=== PATIENT | male | born 1980 | race Hispanic/Latino ===

== ENCOUNTER 2021-06-01 09:09 | Emergency (ER) | payer SELFPAY ==
--- NOTE | 2021-06-01 11:06 | RAD REPORT ---
EXAM DESCRIPTION: RAD - Ankle Left 3 View - 06/01/2021 10:56 am CLINICAL HISTORY: pain/ inflammation COMPARISON: No comparisons FINDINGS: No left ankle fractures identified. Calcaneal spurring is present. Alignment is normal. IMPRESSION: No acute osseus abnormality involving the left ankle.
--- NOTE | 2021-06-01 12:32 | ER ---
Nurse's Notes [facility] Name: Flavio Stone III Age: 40 yrs Sex: Male : 1980 Arrival Date: 06/01/2021 Time: 09:16 Bed DIS8 Private MD: Diagnosis: Sprain of unspecified ligament of left ankle Presentation: 06/01 10:08 Chief complaint: Patient states: "I think I have a grade II sprain. My Achilles heel is ss swollen and I can't put down my foot.". Coronavirus screen: Client denies travel out of the [place] in the last 14 days. Ebola Screen: Patient denies exposure to infectious person. Patient denies travel to an Ebola-affected area in the 21 days before illness onset. Initial Sepsis Screen: Does the patient meet any 2 criteria? No. Patient's initial sepsis screen is negative. Does the patient have a suspected source of infection? No. Patient's initial sepsis screen is negative. Risk Assessment: Do you want to hurt yourself or someone else? Patient reports no desire to harm self or others. Onset of symptoms was May 28, 2021. 10:08 Method Of Arrival: Ambulatory ss 10:08 Acuity: SYED 4 ss Historical: - Allergies: 10:10 No Known Allergies; ss - Home Meds: 10:10 None [Active]; ss - PMHx: 10:10 None; ss - PSHx: 10:10 None; ss - Immunization history:: Client reports having NOT received the Covid vaccine. - Social history:: Smoking status: Patient denies any tobacco usage or history of. Screenin:30 Abuse screen: Denies threats or abuse. Denies injuries from another. Nutritional hb screening: No deficits noted. Tuberculosis screening: No symptoms or risk factors identified. Fall Risk None identified. Assessment: 12:30 General: Appears in no apparent distress. Behavior is calm, cooperative. Pain: Pain hb currently is 6 out of 10 on a pain scale. Neuro: Level of Consciousness is awake, alert, obeys commands, Oriented to person, place, time, situation. Cardiovascular: Patient's skin is warm and dry. Respiratory: Respiratory effort is even, unlabored, Respiratory pattern is regular, symmetrical. Musculoskeletal: Reports left ankle pain. 13:36 Reassessment: splint checked by ILANA Perry. hb Vital Signs: 10:08 Pulse 89; Resp 16; Temp 97.3; Pulse Ox 98% on R/A; Weight 105.69 kg; Height 5 ft. 9 in. ss (175.26 cm); Pain 6/10; 10:10 BP 146 / 107; ss 10:08 Body Mass Index 34.41 (105.69 kg, 175.26 cm) ED Course: 09:16 Patient arrived in ED. mr 10:10 Triage completed. ss 10:10 Arm band placed on right wrist. ss 10:55 XRAY Ankle LEFT 3 view In Process Unspecified. EDMS 12:21 Orlando Marsh NP is PHCP. pm1 12:21 Lucy Falk is Attending Physician. pm1 12:30 Brittni Bowers, RN is Primary Nurse. hb 12:30 Patient has correct armband on for positive identification. hb Administered Medications: 12:35 Drug: Peck (HYDROcodone-acetaminophen) (7.5 mg-325 mg) 1 tabs Route: PO; hb 13:36 Follow up: Response: No adverse reaction hb Outcome: 12:31 Discharge ordered by MD. pm1 14:20 Patient left the ED. hb Signatures: Dispatcher [employer] [facility] SandhuJany mr QuinonesPerla chavarria RN RN Orlando Marsh NP ASSISTANT OPERATOR pm1 Brittni Bowers, KENTRELL RN hb
--- NOTE | 2021-06-01 12:32 | EDPHYS ---
Physician Documentation [facility] Name: Flavio Stone III Age: 40 yrs Sex: Male : 1980 Arrival Date: 06/01/2021 Time: 09:16 Bed DIS8 Private MD: ED Physician Lucy Falk HPI: 06/01 12:30 This 40 yrs old Male presents to ER via Ambulatory with complaints of Ankle pm1 pain. 12:30 The patient presents with pain, that is acute. The complaints affect the left lateral pm1 ankle and left Achilles. Context: The problem was sustained at home, resulted from Walking on the lateral aspect of his left foot/ball due to pain on the medial aspect of his foot. Onset: The symptoms/episode began/occurred 2 day(s) ago. Modifying factors: The symptoms are alleviated by elevating leg, the symptoms are aggravated by weight bearing. Associated signs and symptoms: Pertinent negatives numbness, swelling, tingling. Treatment prior to arrival includes: no previous treatment. Severity of symptoms: in the emergency department the symptoms are actually worse. The patient has not experienced similar symptoms in the past. The patient has not recently seen a physician. Historical: - Allergies: 10:10 No Known Allergies; ss - Home Meds: 10:10 None [Active]; ss - PMHx: 10:10 None; ss - PSHx: 10:10 None; ss - Immunization history:: Client reports having NOT received the Covid vaccine. - Social history:: Smoking status: Patient denies any tobacco usage or history of. ROS: 12:30 Constitutional: Negative for fever, chills, and weight loss, Cardiovascular: Negative pm1 for chest pain, palpitations, and edema, Respiratory: Negative for shortness of breath, cough, wheezing, and pleuritic chest pain. 12:30 Skin: Negative for injury, rash, and discoloration, Neuro: Negative for headache, weakness, numbness, tingling, and seizure. 12:30 MS/extremity: Positive for pain, of the Left ankle and left foot, Negative for decreased range of motion, deformity. 12:30 All other systems are negative. Exam: 12:30 Constitutional: This is a well developed, well nourished patient who is awake, alert, pm1 and in no acute distress. Head/Face: Normocephalic, atraumatic. 12:30 Skin: Warm, dry with normal turgor. Normal color with no rashes, no lesions, and no evidence of cellulitis. 12:30 Cardiovascular: Exam negative for acute changes, Rate: normal, Rhythm: regular, Pulses: no pulse deficits are appreciated. 12:30 Respiratory: Exam negative for acute changes, respiratory distress, shortness of breath. 12:30 Musculoskeletal/extremity: Extremities: grossly normal except: noted in the left Achilles and left lateral ankle: tenderness, There is no evidence of deformity, Full range of motion, active, intact to left ankle and foot. 12:30 Neuro: Exam negative for acute changes, Orientation: is normal, Mentation: is normal, Sensation: is normal, no obvious gross deficits. Vital Signs: 10:08 Pulse 89; Resp 16; Temp 97.3; Pulse Ox 98% on R/A; Weight 105.69 kg; Height 5 ft. 9 in. ss (175.26 cm); Pain 6/10; 10:10 BP 146 / 107; ss 10:08 Body Mass Index 34.41 (105.69 kg, 175.26 cm) ss MDM: 12:21 Patient medically screened. pm1 12:31 Data reviewed: vital signs. Data interpreted: Pulse oximetry: on room air is 98 %. pm1 Interpretation: normal. Counseling: I had a detailed discussion with the patient and/or guardian regarding: the historical points, exam findings, and any diagnostic results supporting the discharge/admit diagnosis, radiology results, the need for outpatient follow up, for definitive care, a orthopedic surgeon, to return to the emergency department if symptoms worsen or persist or if there are any questions or concerns that arise at home. 06/01 10:10 Order name: XRAY Ankle LEFT 3 view; Complete Time: 12:22 ss 06/01 12:30 Order name: Splint - Ankle: Orthoglass: Stirrup; Complete Time: 13:36 pm1 06/01 12:30 Order name: Crutches; Complete Time: 13:36 pm1 Administered Medications: 12:35 Drug: Rock (HYDROcodone-acetaminophen) (7.5 mg-325 mg) 1 tabs Route: PO; hb 13:36 Follow up: Response: No adverse reaction hb Disposition: 16:47 Co-signature as Attending Physician, Lucy Falk I agree with the assessment and plan sp3 of care. Disposition Summary: 06/01/21 12:31 Discharge Ordered Location: Home pm1 Problem: new pm1 Symptoms: have improved pm1 Condition: Stable pm1 Diagnosis - Sprain of unspecified ligament of left ankle pm1 Followup: pm1 - With: Emergency Department - When: As needed - Reason: Worsening of condition Followup: pm1 - With: Private Physician - When: 2 - 3 days - Reason: Recheck today's complaints, Continuance of care, Re-evaluation by your physician Discharge Instructions: - Discharge Summary Sheet pm1 - Ankle Sprain pm1 - Crutch Use, Adult pm1 Forms: - Medication Reconciliation Form pm1 - Thank You Letter pm1 - Antibiotic Education pm1 - Prescription Opioid Use pm1 - Work release form Prescriptions: - Diclofenac Sodium 75 mg Oral tablet,delayed release (DR/EC) - take 1 tablet by ORAL route 2 times per day As needed; 30 tablet; Refills: 0, pm1 Product Selection Permitted Signatures: Dispatcher [employer] [facility] Perla Ac RN RN ss Marinas, Patrick, PATIENT EXPERIENCE COORDINATOR PATIENT EXPERIENCE COORDINATOR pm1 Brittni Bowesr RN RN Lucy Falk sp3
[2021-06-01] MEDS ORDERED: HYDROCODONE/APAP 7.5/325 MG TAB ONE (12:57)
[2021-06-01 14:45] VITALS: TEMP 97.3; O2SAT 98
[2021-06-01 14:46] VITALS: BP 146/107
== END 2021-06-01 14:20 | disposition home or self-care (01) ==
LOC: ER 09:09
DX: S93.402A Sprain of unspecified ligament of left ankle, initial encounter (principal); W19.XXXA Unspecified fall, initial encounter; Y93.01 Activity, walking, marching and hiking; Y92.009 Unspecified place in unspecified non-institutional (private) residence as the place of occurrence of the external cause
CPT/HCPCS: 99283